=== PATIENT | female | born 1960 | race Caucasian/White ===

== ENCOUNTER 2018-10-04 12:41 | Emergency (ER) | payer OTHER ==
[2018-10-04 12:54] VITALS: BP 114/65
--- NOTE | 2018-10-04 13:00 | UC ---
HPI Wound/Suture Re-check - HPI Summary HPI Summary: Patient is a 58-year-old female here for suture removal. Her sutures have been in about a week. She has been in to see her dentist about some dental sensitivity. - History Of Current Complaint Chief Complaint: UCLaceration Stated Complaint: SUTURE REMOVAL Time Seen by Provider: 10/04/18 12:50 Hx Obtained From: Patient Onset/Duration: Sudden Onset Pain Intensity: 0 Pain Scale Used: 0-10 Numeric - Allergies/Home Medications Allergies/Adverse Reactions: Allergies Allergy/AdvReac Type Severity Reaction Status Date / Time No Known Allergies Allergy Verified 09/26/18 19:29 PMH/Surg Hx/FS Hx/Imm Hx Previously Healthy: Yes - Surgical History Surgical History: None - Family History Known Family History: Positive: Unknown - Social History Alcohol Use: Occasionally Substance Use Type: Marijuana Smoking Status (MU): Never Smoked Tobacco - Immunization History Most Recent Tetanus Shot: not sure Review of Systems All Other Systems Reviewed And Are Negative: Yes Constitutional: Positive: Negative Skin: Positive: Negative Eyes: Positive: Negative ENT: Positive: Negative Respiratory: Positive: Negative Cardiovascular: Positive: Negative Gastrointestinal: Positive: Negative Genitourinary: Positive: Negative Motor: Positive: Negative Neurovascular: Positive: Negative Musculoskeletal: Positive: Negative Neurological: Positive: Negative Psychological: Positive: Negative Physical Exam Triage Information Reviewed: Yes Appearance: Well-Appearing, No Pain Distress, Well-Nourished Vital Signs: Initial Vital Signs Temp 98 F 10/04/18 12:52 Pulse 59 10/04/18 12:52 Resp 18 10/04/18 12:52 BP 114/65 10/04/18 12:52 Pulse Ox 99 10/04/18 12:52 Eyes: Positive: Conjunctiva Clear ENT: Positive: Hearing grossly normal. Negative: Nasal congestion, Nasal drainage, Trismus, Muffled voice, Hoarse voice Neck: Positive: Supple Respiratory: Positive: Lungs clear, No respiratory distress, No accessory muscle use Musculoskeletal: Positive: No Edema Neurological: Positive: Alert Psychological Exam: Normal Skin Exam: Other - healing scar upper lip Course/Dx - Course Course Of Treatment: 6 sutures removed - Diagnosis Provider Diagnosis: Encounter for removal of sutures Discharge - Sign-Out/Discharge Documenting (check all that apply): Patient Departure All imaging exams completed and their final reports reviewed: No Studies - Discharge Plan Condition: Stable Disposition: HOME Referrals: Ciera Schwab MD [Primary Care Provider] - If Needed Additional Instructions: call for any questions return for any problems sunscreen - Billing Disposition and Condition Condition: STABLE Disposition: Home
== END 2018-10-04 13:05 | disposition home or self-care (01) ==
LOC: UCEAST 12:41
DX: S01.511D Laceration without foreign body of lip, subsequent encounter (principal); X58.XXXD Exposure to other specified factors, subsequent encounter
CPT/HCPCS: 99211; G0463

== ENCOUNTER 2019-05-22 05:13 | Emergency (ER) | payer OTHER ==
--- OUTSIDE RECORDS SUMMARY | 2019-05-22 05:20 | XMS REPORT | Summary of Care ---
:1960 Author Organization [facility] Address [address] [facility] [address] [address] Care Team Providers Name Role Phone Ciera Schwab MD Primary Care Provider Reason for Referral Refer to Department Only (Routine) Status Reason Specialty Diagnoses / Referred By Referred To Procedures Contact Contact Pending Review Physical Therapy Diagnoses Sciatica of left side Rita Katz NP [address] [place] [address] Reason for Visit Reason Comments Back Pain lower L sciatica pain x2mons, pt has tried accupuncture, chiropracter as well as massages and nothing seems to be helping. Pt would like to discuss referral to OT Encounter Details Date Type Department Care Team Description 05/11/2019 Office Visit [facility] Rita Katz Sciatica of left side Practice ELECTRICAL TECH/PROJECT MANAGER (Primary Dx) [address] [facility] [id number] [place] [address] [phone] Allergies Active Allergy Reactions Severity Noted Date Comments Dust Mites Respiratory Reaction 11/16/2008 Pt gets itchy and Funny feeling in her throat No Known Drug Allergy Other 07/12/2008 documented as of this encounter (statuses as of 05/11/2019) Medications Medication Sig Dispensed Refills Start Date End Date Status Multiple Take by mouth. 0 Active Vitamins-Minerals (MULTIVITAMIN ADULT PO) [place]-3 Fatty Acids Take by mouth. 0 Active (OMEGA 3 PO) Cholecalciferol (VITAMIN Take by mouth. 0 Active D-3 PO) magnesium citrate Oral Take by mouth. 0 Active Solution Etodolac PO cap 200 mg Take 200 mg by 90 Cap 1 05/11/2019 Active 200 MG Oral mouth EVERY CapIndications: Sciatica EIGHT HOURS of left side NEEDED (for sciatica pain). documented as of this encounter (statuses as of 05/11/2019) Active Problems No known active problemsdocumented as of this encounter (statuses as of 2018) Immunizations Name Administration Dates Next Due TDAP Vaccine 02/09/2017 documented as of this encounter Social History Tobacco Use Types Packs/Day Years Used Date Former Smoker Smokeless Tobacco: Never Used Comments: quit when age 25; prior social, 1 ppw Alcohol Use Drinks/Week oz/Week Comments Yes 4 Standard drinks or equivalent 4.0 Sex Assigned at Date Recorded Not on file Job Start Date Occupation Industry Not on file Not on file Not on file Travel History Travel Start Travel End No recent travel history available. documented as of this encounter Last Filed Vital Signs Vital Sign Reading Time Taken Comments Blood Pressure 118/78 05/11/2019 9:05 AM EDT Pulse 64 05/11/2019 9:05 AM EDT Temperature - - Respiratory Rate - - Oxygen Saturation 98% 05/11/2019 9:05 AM EDT Inhaled Oxygen Concentration - - Weight 67.6 kg (149 lb) 05/11/2019 9:05 AM EDT Height 162.6 cm (5' 4") 05/11/2019 9:05 AM EDT Body Mass Index 25.58 05/11/2019 9:05 AM EDT documented in this encounter Patient Instructions Patient InstructionsRita Katz NP - 05/11/2019 9:00 AM EDT-Etodolac 200 mg every 8 hours as needed for pain - DO NOT take on an empty stomach. -Biofreeze to the area. Heating pads, cold packs. -Schedule physical therapy -Follow up if symptoms are worsening or not improving after these measures. Sciatica Exercises About this topic Sciatica is pain, weakness, numbness, or tingling that runs from your buttocks down the back of yourleg to your feet. It happens when something is pressing on , or bothering, the sciatic nerve. This large nerve starts in your lower back. It runs all the way down the back of your leg. The exercises for sciatica may be different based on the cause of your pain. General Before starting with a program, ask your doctor if you are healthy enough to do these exercises. Your doctor may have you work with a management trainer or physical therapist to make a safe exercise program to meet your needs. Stretching Exercises Stretching exercises keep your muscles flexible. They also stop them from getting tight. Start by doing each of these stretches 2 to 3 times. In order for your body to make changes, you will need to hold these stretches for 20 to 30 seconds. Try to do the stretches 2 to 3 times each day. Do all exercises slowly. Single knee to chest stretches ? Lie on your back. Pull one knee towards your chest until you feel a stretch in your lower back and buttock area. Repeat with the other knee. If you have knee problems, pull your knee up by grabbing the back of your thigh instead of the front of your knee. You can also do this exercise by grabbing both knees at the same time. Deep hip stretches lying down ? Lie on your back and bend one knee, keeping that foot flat on the floor. Cross the other leg over your knee. Slowly , pull the bottom leg towards your chest until you feel a stretch in the other buttock. Repeat using the opposite leg as the bottom leg. Deep hip stretches sitting ? Sit on the floor with both legs straight. Take one leg and cross it over the other leg so that the foot of your top leg is next to your outer knee. Now, take the elbowon the opposite side of your bent knee and bring it to the outside of the bent knee. With your elbow, slowly push the bent knee further across the body to get a good stretch in the hip. Hamstring stretches seated ? Sit up straight on the edge of a chair. Make sure you keep your back straight. Straighten your knee on your left leg. Keep your heel on the floor. Bend forward at the waist towards your foot while keeping your upper back straight. Bend forward until you feel a stretchin the back of your thigh. Repeat on the other leg. Strengthening Exercises Strengthening exercises keep your muscles firm and strong. Start by repeating each exercise 2 to 3 times. Work up to doing each exercise 10 times. Try to do the exercises 2 to 3 times each day. Hold each exercise for 3 to 5 seconds. Do all exercises slowly. Hip lifts ? Lie on your back with your knees bent and feet flat on the floor. Tighten your stomach muscles and lift your buttocks off the floor. Relax. Arm and leg lifts on hands and knees ? Start on your hands and knees. With all of these exercises, keep your back as level as possible. If you are having trouble with this, you may want to put a small object on your back such as a book. If it falls off, you are not keeping your back level enough during the exercise. ? Lift one arm up to shoulder level and hold. Lower it back down. Now, lift up the other arm and hold. ? Lift one leg up and kick it straight out until it is in line with your back and hold. Lower it back down. Now, lift up the other leg and hold. ? Lift one arm and the OPPOSITE leg up at the same time and hold. Lower them down. Now, repeat usingthe other arm and leg. This is a very hard exercise. It may take time to be able to do this. What will the results be? Better flexibility Less pain Less numbness and tingling Easier to walk and do other activities Increased core strength Helpful tips Stay active and work out to keep your muscles strong and flexible. Keep a healthy weight to avoid putting too much stress on your spine. Eat a healthy diet to keep your muscles healthy. Be sure you do not hold your breath when exercising. This can raise your blood pressure. If youtend to hold your breath, try counting out loud when exercising. If any exercise bothers you, stop right away. Always warm up before stretching. Heated muscles stretch much easier than cool muscles. Stretching cool muscles can lead to injury. Try walking or cycling at an easy pace for a few minutes to warm up your muscles. Do this againafter exercising. Never bounce when doing stretches. Doing exercises before a meal may be a good way to get into a routine. Exercise may be slightly uncomfortable, but you should not have sharp pains. If you do get sharp pains, stop what you are doing. If the sharp pains continue, call your doctor. Where can I learn more? NHS Choices http://www.nhs.uk/[facility]/Backpain/Pages/sciatica-exercises.aspx Last Reviewed Date 2016-06-09 Consumer Information Use and Disclaimer This information is not specific medical advice and does not replace information you receive from your health care provider. This is only a brief summary of general information. It does NOT include allinformation about conditions, illnesses, injuries, tests, procedures, treatments, therapies, discharge instructions or life-style choices that may apply to you. You must talk with your health care provider for complete information about your health and treatment options. This information should not beused to decide whether or not to accept your health care providers advice, instructions or recommendations. Only your health care provider has the knowledge and training to provide advice that isright for you. Copyright Copyright 2018 [employer] and its affiliates and/or licensors. All rights reserved. documented in this encounter Progress Notes Rita Katz NP - 05/11/2019 9:00 AM EDT PATIENT: Lili Quiñones : 1960 DATE OF SERVICE: 05/11/2019 CHIEF COMPLAINT: Chief Complaint Patient presents with Back Pain lower L sciatica pain x2mons, pt has tried accupuncture, chiropracter as well as massages and nothing seems to be helping. Pt would like to discuss referral to OT Subjective HISTORY OF PRESENT ILLNESS: Lili Quiñones is a 58-y.o. female. HPI Sciatica in left side x2 months, has tried chiropractor, acupuncture and massage with no relief. She is taking 400 mg ibuprofen BID with little relief. Using biofreeze. 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 Before the pain she did a 26 mile bike ride followed a full day sitting at the wheel making [employer]. Before the bike ride she would get a discomfort in her left leg. Pain is an ache in left hip radiating down to left knee, lateral side of left foot aches. She has trouble sitting on most chairs. Tailbone is ache/sharp. Past Medical History: Diagnosis Date GERD (gastroesophageal reflux disease) diet controlled Head injury concussion as a child Heart murmur Heart "flutter" when in [place]. Nephrolithiasis 19 yr ago, surgically removed Family History Problem Relation Age of Onset Diabetes Father Heart Father 69 , [place] Hypertension Father Breast Cancer Mother 79 Cancer Mother Hypertension Mother Thyroid Mother Graves Diabetes Brother Hypertension Brother No Known Problems Daughter Heart Son SVT Heart Paternal Grandfather 62 [place] Diabetes Paternal Grandmother Diabetes Maternal Grandmother 80 Arthritis Brother Diabetes Brother No Known Problems Brother Breast Cancer Paternal Aunt ? late 40s Current Outpatient Medications Medication Sig Cholecalciferol (VITAMIN D-3 PO) Take by mouth. Etodolac PO cap 200 mg 200 MG Oral Cap Take 200 mg by mouth EVERY EIGHT HOURS NEEDED (forsciatica pain). magnesium citrate Oral Solution Take by mouth. Multiple Vitamins-Minerals (MULTIVITAMIN ADULT PO) Take by mouth. [place]-3 Fatty Acids (OMEGA 3 PO) Take by mouth. No current facility-administered medications for this visit. Allergies Allergen Reactions Dust Mites Respiratory Reaction Pt gets itchy and Funny feeling in her throat No Known Drug Allergy Other Social History Socioeconomic History Marital status: Single Spouse name: Not on file Number of children: Not on file Years of education: Not on file Highest education level: Not on file Occupational History Not on file Social Needs Financial resource strain: Not on file Food insecurity: Worry: Not on file Inability: Not on file Transportation needs: Medical: Not on file Non-medical: Not on file Tobacco Use Smoking status: Former Smoker Smokeless tobacco: Never Used Tobacco comment: quit when age 25; prior social, 1 ppw Substance and Sexual Activity Alcohol use: Yes Alcohol/week: 4.0 standard drinks Types: 4 Standard drinks or equivalent per week Drug use: No Sexual activity: Yes Partners: Male Lifestyle Physical activity: Days per week: Not on file Minutes per session: Not on file Stress: Not on file Relationships Social connections: Talks on phone: Not on file Gets together: Not on file Attends judaism service: Not on file Active member of club or organization: Not on file Attends meetings of clubs or organizations: Not on file Relationship status: Not on file Intimate partner violence: Fear of current or ex partner: Not on file Emotionally abused: Not on file Physically abused: Not on file Forced sexual activity: Not on file Other Topics Concern Back Care Not Asked Bike Helmet Yes Blood Transfusions No Caffeine Concern No Exercise Yes Comment: bikes, Yoga, management trainer Hobby Hazards No International Travel Yes Service No Occupational Exposure No Seat Belt Yes Self-Exams Not Asked Sleep Concern No Special Diet Yes Comment: low grains, low carb, high protein Stress Concern No Weight Concern No Social History Narrative Pt lives w/her 2 children, ages 20 and 22, and her , Noah Mohan. 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 Grew up in [place], has been in this [facility] 6yrs, lived in [place] for 10years working for the [employer], both kids born in [place]. REVIEW OF SYSTEMS: Review of Systems Constitutional: Negative for chills, fever and weight loss. Cardiovascular: Negative for leg swelling. Genitourinary: Negative for dysuria, flank pain, frequency and urgency. Musculoskeletal: Positive for back pain (lower left radiating to left knee). Negative for falls, joint pain, myalgias and neck pain. Skin: Negative for rash. Neurological: Negative for tingling, sensory change and weakness. Objective PHYSICAL EXAM: VITALS: BP 118/78 (BP Location: Left arm, Patient Position: Sitting) | Pulse 64 | Ht 5' 4" (1.626m) | Wt 149 lb (67.6 kg) | SpO2 98% | BMI 25.58 kg/m Body mass index is 25.58 kg/m. Physical Exam Constitutional: She is oriented to person, place, and time. Vital signs are normal. She appears well-developed and well-nourished. No distress. Neck: Normal range of motion. Neck supple. No spinous process tenderness and no muscular tenderness present. No neck rigidity. Normal range of motion present. Cardiovascular: Normal rate, regular rhythm, normal heart sounds, intact distal pulses and normal pulses. Exam reveals no gallop and no friction rub. No murmur heard. Pulmonary/Chest: Effort normal and breath sounds normal. No respiratory distress. Musculoskeletal: Normal range of motion. She exhibits no edema or deformity. Cervical back: She exhibits normal range of motion, no tenderness, no bony tenderness, no swelling, no edema, no deformity, no pain and no spasm. Thoracic back: She exhibits normal range of motion, no tenderness, no bony tenderness, no swelling, no edema, no deformity, no pain and no spasm. Lumbar back: She exhibits tenderness (left side). She exhibits normal range of motion, no bony tenderness, no swelling, no edema, no deformity, no pain and no spasm. Lymphadenopathy: Head (right side): No submental, no submandibular, no tonsillar, no preauricular and no posterior auricular adenopathy present. Head (left side): No submental, no submandibular, no tonsillar, no preauricular and no posterior auricular adenopathy present. She has no cervical adenopathy. Right: No supraclavicular adenopathy present. Left: No supraclavicular adenopathy present. Neurological: She is alert and oriented to person, place, and time. She has normal strength and normal reflexes. No cranial nerve deficit or sensory deficit. She displays a negative Romberg sign. Coordination and gait normal. Nursing note and vitals reviewed. ASSESSMENT / IMPRESSION: ICD-9-CM ICD-10-CM 1. Sciatica of left side 724.3 M54.32 Etodolac PO cap 200 mg 200 MG Oral Cap REFER TO PHYSICAL THERAPY / REHAB Plan -Etodolac 200 mg every 8 hours as needed for pain - DO NOT take on an empty stomach. Advised not to take this medication long-term, only for a few weeks until physical therapy is helping with the pain. -Biofreeze to the area. Heating pads, cold packs. -Sleep with a pillow between your legs and behind your back. -Schedule physical therapy -Follow up if symptoms are worsening or not improving after these measures. -Will make an appointment for physical exam in August Author: Rita Katz NP 05/11/2019 09:30 documented in this encounter Plan of Treatment Name Type Priority Associated Diagnoses Order Schedule REFER TO PHYSICAL Referral Routine Sciatica of left side 99 Occurrences starting THERAPY / REHAB 05/11/2019 until 05/11/2020 Health Maintenance Due Date Last Done Comments PNEUMOCOCCAL 0-64 YRS (1 of 1967 3 - PCV13) ZOSTER IMMUNIZATION SERIES 2011 (1 of 2) INFLUENZA VACCINE (#1) 2019 DEPRESSION SCREENING 09/29/2019 09/29/2018 DIABETES SCREENING 09/29/2019 09/29/2018, 09/29/2018, 02/09/2017 MAMMOGRAM (SCREENING) 12/28/2019 12/27/2018, 12/27/2018, 12/01/2017, Additional history exists PAP SMEAR 04/15/2021 04/15/2018, 05/23/2015, 01/14/2011 LIPID DISORDER SCREENING 02/09/2022 02/09/2017 COLONOSCOPY SCREENING 01/25/2023 01/25/2013 (Previously completed) HPV IMMUNIZATION SERIES Aged Out No longer eligible based on patient's age to complete this topic MENINGOCOCCAL VACCINE IMM Aged Out No longer eligible based on patient's age to complete this topic documented as of this encounter Results Not on filedocumented in this encounter Visit Diagnoses Diagnosis Sciatica of left side - Primary Sciatica documented in this encounter Insurance Payer Benefit Plan / Subscriber ID Effective Dates Phone Address Type Group [employer] C[employer] MVP xxxxxxxxxxx 2018-Present [employer] Guarantor Name Account Type Relation to Date of Phone Billing Patient Address Lili Quiñones Personal/Family 1960 [id number] (Home) [address] [phone] [place] ([place]) [place] [address] documented as of this encounter
[2019-05-22] MEDS ORDERED: Dexamethasone IV* 4 MG/ML 1 ML (4 MG) IM ONE (05:58)
[2019-05-22] MEDS ORDERED: Ketorolac *IM* INJ* 60 MG/2 ML VIAL IM ONE (05:58)
--- NOTE | 2019-05-22 06:03 | ED ---
Back Pain - HPI Summary HPI Summary: This patient is a 58-year-old female presenting to the ED with left-sided sciatic pain rated at 10/10. She states she recently finished a five-day course of steroids. In the middle the night, she states she turned wrong and the sciatic flared up again. She is tearful on arrival and states she is no longer able to live with this pain and would like an MRI. He was discussed with the patient she will need to follow-up with her PCP regarding the MRI she does not have any bladder or bowel dysfunction. She endorses pain over the left gluteus radiating to the left posterior thigh and into the posterior knee. Symptoms have been present times several weeks, however worsened yesterday. She was not given pain control from her PCP and has not had any PT. - History of Current Complaint Chief Complaint: EDBackInjuryPain Stated Complaint: SCIATICA PAIN LT HIP PER EMS Time Seen by Provider: 05/22/19 05:57 Hx Obtained From: Patient Onset/Duration: Sudden Onset Onset/Duration: Started Hours Ago Timing: Constant Back Pain Location: Is Discrete @ - left sided sciatic pain Severity Initially: Severe Severity Currently: Severe Pain Intensity: 9 Pain Scale Used: 0-10 Numeric Character: Aching Alleviating Symptom(s): Rest Associated Signs And Symptoms: Negative: Swelling, Redness, Bruising, Bladder Incontinence, Bowel Incontinence, Weight Loss, Pain with Weight Bearing - Risk Factors AAA Risk Factors: Negative TAD Risk Factors: Negative Cauda Equina Risk Factors: Negative Epidural Abscess Risk Factors: Negative - Allergies/Home Medications Allergies/Adverse Reactions: Allergies Allergy/AdvReac Type Severity Reaction Status Date / Time No Known Allergies Allergy Verified 10/04/18 13:05 PMH/Surg Hx/FS Hx/Imm Hx Previously Healthy: Yes Musculoskeletal History: Denies: Hx Rheumatoid Arthritis, Hx Osteoporosis, Hx Scoliosis Neurological History: Denies: Hx Headaches, Other Neuro Impairments/Disorders - Cancer History Hx Chemotherapy: No Hx Radiation Therapy: No - Immunization History Hx Pertussis Vaccination: No Immunizations Up to Date: Yes Infectious Disease History: No Infectious Disease History: Denies: Traveled Outside the [place] in Last 30 Days - Family History Known Family History: Positive: Unknown - Social History Occupation: Employed Full-time Lives: With Family Alcohol Use: Occasionally Hx Substance Use: Yes Substance Use Type: Reports: Marijuana Hx Tobacco Use: No Smoking Status (MU): Never Smoked Tobacco Review of Systems Constitutional: Negative Negative: Fever, Chills, Fatigue, Skin Diaphoresis Negative: Palpitations, Chest Pain Negative: Shortness Of Breath, Cough Positive: no symptoms reported, see HPI Positive: Arthralgia, Other - left sided pain over sciatic notch Skin: Negative Neurological: Negative All Other Systems Reviewed And Are Negative: Yes Physical Exam Triage Information Reviewed: Yes Vital Signs On Initial Exam: Initial Vitals Temp Pulse Resp BP Pulse Ox 97.1 F 72 24 107/72 97 05/22/19 05:17 05/22/19 05:17 05/22/19 05:17 05/22/19 05:17 05/22/19 05:17 Vital Signs Reviewed: Yes Appearance: Positive: Pain Distress Skin: Positive: Warm, Skin Color Reflects Adequate Perfusion Head/Face: Positive: Normal Head/Face Inspection Eyes: Positive: EOMI, PAYTON, Conjunctiva Clear Neck: Positive: Supple Respiratory/Lung Sounds: Positive: Breath Sounds Present Cardiovascular: Positive: Normal, Pulses are Symmetrical in both Upper and Lower Extremities Musculoskeletal: Positive: Pain @ - left sided sciatic pain Neurological: Positive: Speech Normal Psychiatric: Positive: Normal, Affect/Mood Appropriate AVPU Assessment: Alert Diagnostics - Vital Signs Vital Signs Temp Pulse Resp BP Pulse Ox 05/22/19 05:49 60 136/64 99 05/22/19 05:20 72 107/72 100 05/22/19 05:18 72 99 05/22/19 05:17 97.1 F 72 24 107/72 97 - Laboratory Lab Statement: Any lab studies that have been ordered have been reviewed, and results considered in the medical decision making process. Back Pain Course/Dx - Course Course Of Treatment: During the course of treatment, the patient's evaluated for left-sided sciatic pain. Patient states she is in a 10/10 pain, tearful on arrival. She states she is unable to handle the pain and would like an MRI. Patient is given dexamethasone, hydrocodone and toradol. This improved her symptoms somewhat, however she states immediately upon moving in any which way, her symptoms are aggravated again. She continues to endorse an 8/10 pain at this time. Attempting to use the restroom, sxs are aggravated once more and is now in 10/10 pain, she was given heat packs, flexeril and subsequently more toradol. She continues to be unable to ambulate d/t pain, however there is no weakness noted bilaterally. No pain to the posterior spine. After multiple failed attempts at pain control in the ED, offered admission to the pt. She declines at this time, and is requesting help to the car. She is ambulating well with walker. Encouraged f/u with PCP today at 3pm (pt has appt) and continue with toradol, flexeril, hydrocodone as needed and prednisone. She will likely need further imaging as outpatient and this was discussed with patient. No bladder or bowel dysfunction, no foot drop. - Diagnoses Provider Diagnoses: Sciatica Discharge ED - Sign-Out/Discharge Documenting (check all that apply): Patient Departure Patient Received Moderate/Deep Sedation with Procedure: No - Discharge Plan Condition: Stable Disposition: HOME Prescriptions: Cyclobenzaprine TAB* [Flexeril TAB*] 10 mg PO TID #20 tab MDD 3 HYDROcodone/ACETAMIN 5-325 MG* [Crawford 5-325 TAB*] 1 tab PO Q4H PRN #18 tab MDD 6 PRN Reason: Pain Ketorolac TAB * [Toradol TAB *] 10 mg PO Q6H #16 tab predniSONE TAB* [Deltasone TAB*] 50 mg PO DAILY #5 tab MDD 1 Patient Education Materials: Sciatica (ED), Piriformis Syndrome (ED), Lower Back Exercises (ED) Referrals: Ciera Schwab MD [Primary Care Provider] - Additional Instructions: Moist heat as much as possible Gentle stretches as well as using the tennis ball to the wall Massage therapy after moist heat has been applied Flexeril may be used up to three times daily for spasms Hydrocodone may be used up to 6 times daily for pain - do not take TYLENOL while taking this medication and take on opposite schedule of the flexeril Prednisone once daily x 5 days - start this tomorrow morning Toradol four times daily x 4 days - do not take IBUPROFEN while taking this medication F/u with primary as soon as possible - Billing Disposition and Condition Condition: STABLE Disposition: Home
[2019-05-22] MEDS: HYDROcodone/ACETAMIN 5-325 MG* 1 TAB PO ONE ×2 (06:10→06:51)
[2019-05-22] MEDS ORDERED: Cyclobenzaprine TAB* 10 MG PO ONE (09:34)
[2019-05-22] MEDS ORDERED: Ketorolac TAB * 10 MG TAB PO ONE (10:17)
[2019-05-22 11:25] VITALS: BP 137/62
== END 2019-05-22 11:06 | disposition home or self-care (01) ==
LOC: ED 05:13
DX: M54.30 Sciatica, unspecified side (principal)
CPT/HCPCS: 96372; 99282; A9270-GY; J1100; J1885